=== PATIENT | female | born 1935 | race Caucasian/White ===

== ENCOUNTER 2017-02-22 10:19 | Emergency (ER) | payer MEDICARE, MEDICAID ==
[2017-02-22 10:40] VITALS: BP 109/72
--- NOTE | 2017-02-22 12:17 | ER Document Report ---
ED General - General Mode of Arrival: Ambulatory - with walker Information source: Patient TRAVEL OUTSIDE OF THE [place] IN LAST 30 DAYS: No - HPI Associated symptoms: Other - see HPI <ROSCOE MILNER - Last Filed: 02/22/17 12:11> <DURAN العلي - Last Filed: 04/02/17 06:33> - General Chief Complaint: Weakness Stated Complaint: WEAKNESS Time Seen by Provider: 02/22/17 11:51 Notes: Patient is an 82 year old female who presents to the ED with complaints of worsening arthritic pain, decline in ability to do daily activities without assistance and increased forgetfulness. This has all been declining over the last several months. She also complains of "shaking in her chest" and anxiety. Her PCP is aware of these symptoms and her next appointment with him is in March. (ROSCOE MILNER) - Related Data Allergies/Adverse Reactions: codeine [Codeine] Allergy (Verified 02/22/17 10:38) doxycycline [Doxycycline] Allergy (Verified 02/22/17 10:38) Sulfa (Sulfonamide Antibiotics) Allergy (Verified 02/22/17 10:38) Home Medications: Current Home Medications Esomeprazole Magnesium [Nexium] 40 mg PO DAILY 02/22/17 [History] Hydrochlorothiazide [Hydrochlorothiazide] 25 mg PO DAILY 02/22/17 [History] Olopatadine HCl [Pataday] 1 drop OU DAILY 02/22/17 [History] Risperidone [Risperdal] 0.5 mg PO BID 02/22/17 [History] Rosuvastatin Calcium [Rosuvastatin Calcium] 20 mg PO DAILY 02/22/17 [History] Past Medical History - General Information source: Patient - Social History Smoking Status: Never Smoker Chew tobacco use (# tins/day): No Frequency of alcohol use: None Drug Abuse: None Family History: Reviewed & Not Pertinent - Past Medical History Cardiac Medical History: Reports: Hx Hypercholesterolemia, Hx Hypertension Pulmonary Medical History: Reports: Hx Asthma Endocrine Medical History: Reports: Hx Diabetes Mellitus Type 2 Renal/ Medical History: Denies: Hx Peritoneal Dialysis Musculoskeltal Medical History: Reports Hx Arthritis - KNEES Psychiatric Medical History: Reports: Hx Anxiety - Immunizations Hx Diphtheria, Pertussis, Tetanus Vaccination: Yes <ROSCOE MILNER - Last Filed: 02/22/17 12:11> Review of Systems - Review of Systems Constitutional: See HPI, Weakness EENT: No symptoms reported Cardiovascular: No symptoms reported Respiratory: No symptoms reported Gastrointestinal: No symptoms reported Genitourinary: No symptoms reported Female Genitourinary: No symptoms reported Musculoskeletal: See HPI, Other - worsening arthritic pain Skin: No symptoms reported Hematologic/Lymphatic: No symptoms reported Neurological/Psychological: See HPI, Anxiety, Weakness, Other - forgetful <ROSCOE MILNER - Last Filed: 02/22/17 12:11> Physical Exam - General General appearance: Appears well, Alert, Other - expressionless face In distress: None - HEENT Head: Normocephalic, Atraumatic Eyes: Normal, Tears - right eye Extraocular movements intact: Yes Pupils: PERRL - Respiratory Respiratory status: No respiratory distress Breath sounds: Normal - Cardiovascular Rhythm: Regular Heart sounds: Normal auscultation Murmur: No - Abdominal Inspection: Normal Distension: No distension Tenderness: Nontender - Back Back: Normal - Extremities General upper extremity: Normal inspection, Normal strength General lower extremity: Normal inspection, Normal strength - Neurological Neuro grossly intact: Yes - Psychological Associated symptoms: Normal affect, Normal mood - Skin Skin Temperature: Warm Skin Moisture: Dry Skin Color: Normal <ROSCOE MILNER - Last Filed: 02/22/17 12:11> - Vital signs Vitals: Temp Pulse Resp BP Pulse Ox 98.4 F 89 16 109/72 94 02/22/17 10:38 02/22/17 10:38 02/22/17 10:38 02/22/17 10:38 02/22/17 10:38 Course - Laboratory Result Diagrams: 02/22/17 13:02 02/22/17 13:02 <DURAN العلي - Last Filed: 04/02/17 06:33> - Vital Signs Vital signs: Temp Pulse Resp BP Pulse Ox 98.4 F 89 16 109/72 94 02/22/17 10:38 02/22/17 10:38 02/22/17 10:38 02/22/17 10:38 02/22/17 10:38 - Laboratory Laboratory results interpreted by me: 02/22/17 02/22/17 02/22/17 13:02 13:02 13:02 Plt Count 147 L Potassium 3.1 L Chloride 95 L Carbon Dioxide 35 H BUN 25 H Est GFR ( Amer) 50 L Est GFR (Non-Af Amer) 41 L Magnesium AST 38 H Urine Blood SMALL H 02/22/17 13:02 Plt Count Potassium Chloride Carbon Dioxide BUN Est GFR ( Amer) Est GFR (Non-Af Amer) Magnesium 1.5 L AST Urine Blood Discharge <ROSCOE MILNER - Last Filed: 02/22/17 12:11> <DURAN العلي - Last Filed: 04/02/17 06:33> - Discharge Clinical Impression: Anxiety, Arthritis, Hypokalemia, Declining functional status Condition: Stable Disposition: HOME, SELF-CARE Additional Instructions: There was no sign of any infection on your workup today. You did have a low potassium level. You should increase potassium in your diet, eating things such as bananas. Your serum carbon dioxide levels were increased compared to the lab work I have to review from 2 years ago. I cannot tell if this is a new finding without recent lab work for comparison. You should follow-up with Dr. Trujillo in the office tomorrow for reevaluation of your lab work, and your functional status decline which has been occurring over the last several weeks to months. RETURN TO THE EMERGENCY ROOM IF ANY NEW OR WORSENING SYMPTOMS. Referrals: CHLOE TRUJILLO MD [Primary Care Provider] - Follow up tomorrow Scribe Attestation: 02/22/17 14:35 I personally performed the services described in the documentation, reviewed and edited the documentation which was dictated to the scribe in my presence, and it accurately records my words and actions. (DURAN العلي) Scribe Documentation - Scribe Written by Marcy:: marcy White, 02/22/17, 1212 acting as scribe for :: Georgette <ROSCOE MILNER - Last Filed: 02/22/17 12:11>
[2017-02-22 13:21] LABS: ABSOLUTE LYMPHOCYTES (AUTO) 1.7 10^3/uL (0.5-4.7); ABSOLUTE MONOCYTES (AUTO) 0.3 10^3/uL (0.1-1.4); ABSOLUTE NEUT (AUTO) 4.8 10^3/uL (1.7-8.2); BASOPHILS % (AUTO) 0.4 % (0-2); EOSINOPHILS % (AUTO) 0.5 % (0-6); HEMOGLOBIN 13.4 g/dL (12.0-15.5); HGB HCT DIFFERENCE 2.2; LYMPHOCYTES % (AUTO) 24.3 % (13-45); MEAN CORPUSCULAR HEMOGLOBIN 31.5 pg (27.0-33.4); MEAN CORPUSCULAR HGB CONC 35.3 g/dL (32.0-36.0); MEAN CORPUSCULAR VOLUME 89 fl (80-97); RED BLOOD COUNT 4.26 10^6/uL (3.72-5.28); RED CELL DISTRIBUTION WIDTH 13.5 % (11.5-14.0); SEGMENTED NEUTROPHILS % (AUTO) 69.8 % (42-78); WHITE BLOOD COUNT 6.9 10^3/uL (4.0-10.5)
[2017-02-22 13:27] LABS: APPEARANCE,URINE CLEAR; BILIRUBIN,URINE NEGATIVE (NEGATIVE); GLUCOSE, URINE NEGATIVE (NEGATIVE); KETONES,URINE NEGATIVE (NEGATIVE); LEUKOCYTE ESTERASE,URINE NEGATIVE (NEGATIVE); NITRITE,URINE NEGATIVE (NEGATIVE); PROTEIN,URINE NEGATIVE (NEGATIVE); URINE SPECIFIC GRAVITY 1.005; UROBILINOGEN,URINE NEGATIVE mg/dL (<2.0)
[2017-02-22 13:41] LABS: ALANINE AMINOTRANSFERASE 26 U/L (9-52); ALKALINE PHOSPHATASE 67 U/L (38-126); ANION GAP 14 (5-19); ASPARTATE AMINO TRANSFERASE 38 U/L (14-36); BILIRUBIN,DIRECT 0.4 mg/dL (0.0-0.4); BILIRUBIN,TOTAL 0.9 mg/dL (0.2-1.3); BLOOD UREA NITROGEN 25 mg/dL (7-20); CALCIUM 9.7 mg/dL (8.4-10.2); CARBON DIOXIDE 35 mmol/L (22-30); CHLORIDE 95 mmol/L (98-107); CREATININE RESULT 1.25 mg/dL (0.52-1.25); GLUCOSE 97 mg/dL (75-110); POTASSIUM 3.1 mmol/L (3.6-5.0); SODIUM 143.7 mmol/L (137-145); TOTAL PROTEIN 6.9 g/dL (6.3-8.2)
[2017-02-22] MEDS ORDERED: POTASSIUM CHLORIDE 10 MEQ TABLET.SA PO ONE (14:07)
== END 2017-02-22 15:23 | disposition home or self-care (01) ==
LOC: ER 10:19
DX: F41.9 Anxiety disorder, unspecified (principal); M19.90 Unspecified osteoarthritis, unspecified site; E87.6 Hypokalemia; R53.81 Other malaise; R53.1 Weakness; I10 Essential (primary) hypertension; E11.9 Type 2 diabetes mellitus without complications; E78.00 Pure hypercholesterolemia, unspecified; Z88.6 Allergy status to analgesic agent; Z88.2 Allergy status to sulfonamides
CPT/HCPCS: 99284; 36415; 83735; 84443; 85025; 80053; 81001; A9270

== ENCOUNTER 2017-05-31 11:18 | Inpatient (IN) | payer MEDICARE, MEDICAID ==
[2017-05-31] MEDS ORDERED: NORMAL SALINE 1000 ML 1,000 ML IV PRN (12:11)
--- NOTE | 2017-05-31 12:12 | ER Document Report ---
ED Medical Screen (RME) - General Chief Complaint: Difficulty Swallowing Stated Complaint: MOUTH PAIN Time Seen by Provider: 05/31/17 12:11 Mode of Arrival: Ambulatory Information source: Patient Notes: This is an 82-year-old female who is brought to the emergency room for generalized weakness, drooling, not eating TRAVEL OUTSIDE OF THE [place] IN LAST 30 DAYS: No - Related Data Allergies/Adverse Reactions: codeine [Codeine] Allergy (Verified 05/31/17 11:19) doxycycline [Doxycycline] Allergy (Verified 05/31/17 11:19) Sulfa (Sulfonamide Antibiotics) Allergy (Verified 05/31/17 11:19) Past Medical History - Social History Frequency of alcohol use: None Drug Abuse: None - Past Medical History Cardiac Medical History: Reports: Hx Hypercholesterolemia, Hx Hypertension Pulmonary Medical History: Reports: Hx Asthma Endocrine Medical History: Reports: Hx Diabetes Mellitus Type 2 Renal/ Medical History: Denies: Hx Peritoneal Dialysis Musculoskeltal Medical History: Reports Hx Arthritis - KNEES Psychiatric Medical History: Reports: Hx Anxiety - Immunizations Hx Diphtheria, Pertussis, Tetanus Vaccination: Yes History of Influenza Vaccine for 02/2017 - 07/2017 Season: No Physical Exam - Vital signs Vitals: Temp Pulse Resp BP Pulse Ox 98.0 F 78 14 132/66 H 94 05/31/17 11:25 05/31/17 11:25 05/31/17 11:25 05/31/17 11:25 05/31/17 11:25 Course - Vital Signs Vital signs: Temp Pulse Resp BP Pulse Ox 98.0 F 78 14 132/66 H 94 05/31/17 11:25 05/31/17 11:25 05/31/17 11:25 05/31/17 11:25 05/31/17 11:25
[2017-05-31 12:56] LABS: ABSOLUTE EOSINOPHILS # (AUTO) 0.1 10^3/uL (0.0-0.6); ABSOLUTE LYMPHOCYTES (AUTO) 1.2 10^3/uL (0.5-4.7); ABSOLUTE MONOCYTES (AUTO) 0.3 10^3/uL (0.1-1.4); ABSOLUTE NEUT (AUTO) 3.9 10^3/uL (1.7-8.2); BASOPHILS % (AUTO) 0.7 % (0-2); EOSINOPHILS % (AUTO) 1.4 % (0-6); HEMATOCRIT 34.1 % (36.0-47.0); HEMOGLOBIN 11.7 g/dL (12.0-15.5); LYMPHOCYTES % (AUTO) 21.5 % (13-45); MEAN CORPUSCULAR HEMOGLOBIN 30.5 pg (27.0-33.4); MEAN CORPUSCULAR HGB CONC 34.4 g/dL (32.0-36.0); MEAN CORPUSCULAR VOLUME 89 fl (80-97); MONOCYTES % (AUTO) 5.9 % (3-13); PLATELET COUNT 202 10^3/uL (150-450); RED BLOOD COUNT 3.85 10^6/uL (3.72-5.28); RED CELL DISTRIBUTION WIDTH 14.5 % (11.5-14.0); SEGMENTED NEUTROPHILS % (AUTO) 70.5 % (42-78); TOTAL CELLS COUNTED % (AUTO) 100 %; WHITE BLOOD COUNT 5.6 10^3/uL (4.0-10.5)
[2017-05-31 13:15] LABS: ALANINE AMINOTRANSFERASE 32 U/L (9-52); ALBUMIN 3.6 g/dL (3.5-5.0); ALKALINE PHOSPHATASE 55 U/L (38-126); ANION GAP 10 (5-19); ASPARTATE AMINO TRANSFERASE 57 U/L (14-36); BILIRUBIN,DIRECT 0.4 mg/dL (0.0-0.4); BILIRUBIN,TOTAL 0.8 mg/dL (0.2-1.3); BLOOD UREA NITROGEN 31 mg/dL (7-20); CALCIUM 9.4 mg/dL (8.4-10.2); CARBON DIOXIDE 34 mmol/L (22-30); CHLORIDE 93 mmol/L (98-107); GLUCOSE 119 mg/dL (75-110); SODIUM 136.8 mmol/L (137-145); TOTAL PROTEIN 6.3 g/dL (6.3-8.2)
[2017-05-31 13:18] LABS: POTASSIUM 2.8 mmol/L (3.6-5.0)
--- NOTE | 2017-05-31 13:21 | RADIOLOGY REPORT (SQ) ---
EXAM DESCRIPTION: CHEST PA/LAT COMPLETED DATE/TIME: 05/31/2017 1:12 pm REASON FOR STUDY: weakness COMPARISON: 02/25/2015 EXAM PARAMETERS: NUMBER OF VIEWS: two views TECHNIQUE: Digital Frontal and Lateral radiographic views of the chest acquired. RADIATION DOSE: NA LIMITATIONS: none FINDINGS: LUNGS AND PLEURA: No opacities, masses or pneumothorax. No pleural effusion. MEDIASTINUM AND HILAR STRUCTURES: No masses or contour abnormalities. HEART AND VASCULAR STRUCTURES: Heart normal size. No evidence for failure. BONES: No acute findings. HARDWARE: None in the chest. OTHER: No other significant finding. IMPRESSION: NO ACUTE CARDIOPULMONARY PROCESS. NO SIGNIFICANT CHANGE FROM PRIOR STUDY. TECHNICAL DOCUMENTATION: JOB ID: [id number] [employer]- All Rights Reserved
--- NOTE | 2017-05-31 13:51 | ER Document Report ---
ED General - General Chief Complaint: Difficulty Swallowing Stated Complaint: MOUTH PAIN Time Seen by Provider: 05/31/17 12:11 Mode of Arrival: Ambulatory TRAVEL OUTSIDE OF THE [place] IN LAST 30 DAYS: No - HPI Notes: 82-year-old female who is brought to the emergency room for generalized weakness , drooling, not eating. She has a history of dementia hypokalemia and hypomagnesemia. Initially there were varying opinions on when this started apparently it started mildly about a week ago but is much worse than the last 2 days. Patient states she drools can get some of her saliva down but is unable to eat or really drink anything. She denies any mouth or throat pain. She has difficulty describing why this is happening but states she thinks it might be related to "nerves". She recently was started on a medication, Aricept, which she states she does not like to take. Denies any other focal weakness numbness or tingling. No visual change. She has generalized weakness and is having increasing difficulty performing ADLs. She does have caregivers that come to the house. Primary care physician is Dr. Trujillo. - Related Data Allergies/Adverse Reactions: codeine [Codeine] Allergy (Verified 05/31/17 11:19) doxycycline [Doxycycline] Allergy (Verified 05/31/17 11:19) Sulfa (Sulfonamide Antibiotics) Allergy (Verified 05/31/17 11:19) Past Medical History - General Information source: Patient - Social History Smoking Status: Never Smoker Frequency of alcohol use: None Drug Abuse: None Family History: Reviewed & Not Pertinent Patient has suicidal ideation: No Patient has homicidal ideation: No - Past Medical History Cardiac Medical History: Reports: Hx Hypercholesterolemia, Hx Hypertension Pulmonary Medical History: Reports: Hx Asthma Endocrine Medical History: Reports: Hx Diabetes Mellitus Type 2 Renal/ Medical History: Denies: Hx Peritoneal Dialysis Musculoskeltal Medical History: Reports Hx Arthritis - KNEES Psychiatric Medical History: Reports: Hx Anxiety - Immunizations Hx Diphtheria, Pertussis, Tetanus Vaccination: Yes Review of Systems - Review of Systems -: Yes All other systems reviewed and negative Physical Exam - Vital signs Vitals: Temp Pulse Resp BP Pulse Ox 98.0 F 78 14 132/66 H 94 05/31/17 11:25 05/31/17 11:25 05/31/17 11:25 05/31/17 11:25 05/31/17 11:25 Notes: See nurse's note - Notes Notes: GENERAL: VS as per nursing doc. Well-appearing, well-nourished and in no acute distress. HEAD: Atraumatic, normocephalic. EYES: Pupils equal round and reactive to light, extraocular movements intact, sclera anicteric, no conjunctival injection or discharge. ENT: Nares patent, there is no drooling noted. Maintaining airway and secretions. Dentures are noted in place. Mucosal lesions are absent. Moist mucous membranes. NECK: Normal range of motion, supple, no carotid bruits. No gross swallowing deficit. LUNGS: Breath sounds clear to auscultation bilaterally and equal. No wheezes rales or rhonchi. HEART: Normal S1S2. Regular rate and rhythm without murmurs. Equal peripheral pulses. ABDOMEN: Soft, non-tender. EXTREMITIES: No significant range of motion limitations. No edema. NEUROLOGICAL: GCS 15, Cranial nerves II-XII intact. Normal speech without aphasia. No pronator drift. Generalized weakness but symmetrical. No cerebellar abnormalities no very slow rapid alternating movements. PSYCH: Very flat affect noted. No significant facial expression noted. Minimal smile obtained when directed. SKIN: Warm, Dry, no cyanosis, Cap refill < 2 sec. Course - Re-evaluation Re-evalutation: 05/31/17 15:08 Though the patient is not had a lot of dribbling here, she is done poorly with swallowing. Unclear if this is more psychiatric in nature but cannot rule out neurologic cause otherwise. She is hypokalemic and as she is not taking p.o. well, she will need further IV replacement. Dr. Trujillo will admit for further evaluation and treatment. - Vital Signs Vital signs: Temp Pulse Resp BP Pulse Ox 98.0 F 78 14 132/66 H 94 05/31/17 11:25 05/31/17 11:25 05/31/17 13:15 05/31/17 11:25 05/31/17 11:25 - Laboratory Result Diagrams: 05/31/17 12:25 05/31/17 12:25 Laboratory results interpreted by me: 05/31/17 05/31/17 12:25 12:25 Hgb 11.7 L Hct 34.1 L RDW 14.5 H Sodium 136.8 L Potassium 2.8 L* Chloride 93 L Carbon Dioxide 34 H BUN 31 H Est GFR ( Amer) 52 L Est GFR (Non-Af Amer) 43 L Glucose 119 H AST 57 H - EKG Interpretation by Me EKG shows normal: Sinus rhythm - Heart rate 63, right bundle branch configuration, low amplitude P waves are present. Artifact noted. - Consults Sadaf Time consulted: 15:07 Consulted provider: will see as inpatient Discharge - Discharge Clinical Impression: Dysphasia, Hypokalemia, Weakness Condition: Fair Disposition: ADMITTED OBSERVATION Admitting Provider: Sadaf Unit Admitted: Telemetry Referrals: CHLOE TRUJILLO MD [Primary Care Provider] - Follow up as needed
--- NOTE | 2017-05-31 14:44 | RADIOLOGY REPORT (SQ) ---
EXAM DESCRIPTION: CT HEAD WITHOUT COMPLETED DATE/TIME: 05/31/2017 2:34 pm REASON FOR STUDY: Swallowing dysfunction COMPARISON: 02/25/2015. TECHNIQUE: Axial images acquired through the brain without intravenous contrast. Images reviewed wi th bone, brain and subdural windows. Images stored on PACS. All CT scanners at this facility use dose modulation, iterative reconstruction, and/or weight based d osing when appropriate to reduce radiation dose to as low as reasonably achievable (ALARA). [facility]: Dose Right [facility]: CareDose [facility]: Dose Right [facility]: Teradose 4D [facility]: [employer] RADIATION DOSE: CT Rad equipment meets quality standard of care and radiation dose reduction techniq ues were employed. CTDIvol: 62.3 mGy. DLP: 1163 mGy-cm. mGy. LIMITATIONS: None. FINDINGS: VENTRICLES: Prominent. CEREBRUM: No masses. No hemorrhage. No midline shift. Areas of low density in the white matter mos t likely due to chronic micro-vascular ischemic change. Old infarct in the right occipital lobe. No evidence for acute infarction. CEREBELLUM: No masses. No hemorrhage. No alteration of density. No evidence for acute infarction. EXTRAAXIAL SPACES: Mild age-related involutional change. No fluid collections. No masses. ORBITS AND GLOBE: No intra- or extraconal masses. Normal contour of globe without masses. CALVARIUM: No fracture. PARANASAL SINUSES: Mucous membrane thickening in the left maxillary sinus. No fluid. SOFT TISSUES: No mass or hematoma. OTHER: No other significant finding. IMPRESSION: MILD CHRONIC CHANGES OF ATROPHY AND MICROVASCULAR ISCHEMIA. 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 CHRONIC SINUS DISEASE. NO ACUTE PROCESS. EVIDENCE OF ACUTE STROKE: NO. TECHNICAL DOCUMENTATION: JOB ID: [id number] Quality ID # [id number]: Final reports with documentation of one or more dose reduction techniques (e.g., Au tomated exposure control, adjustment of the mA and/or kV according to patient size, use of iterative reconstruction technique) 2010 [employer]- All Rights Reserved
[2017-05-31] MEDS: POTASSI CL 20 MEQ/50 ML RIDER 20 MEQ/50 ML RTUPB IV SCH ×2 (14:49→17:04)
[2017-05-31 16:59] LABS: APPEARANCE,URINE CLEAR; BILIRUBIN,URINE NEGATIVE (NEGATIVE); COLOR,URINE STRAW; GLUCOSE, URINE NEGATIVE (NEGATIVE); KETONES,URINE NEGATIVE (NEGATIVE); LEUKOCYTE ESTERASE,URINE NEGATIVE (NEGATIVE); NITRITE,URINE NEGATIVE (NEGATIVE); PROTEIN,URINE NEGATIVE (NEGATIVE); URINE SPECIFIC GRAVITY 1.005; UROBILINOGEN,URINE NEGATIVE mg/dL (<2.0)
[2017-05-31] MEDS: HYDROCODONE/ACETAMINOPHEN 5-325 MG TABLET PO PRN (18:36)
--- NOTE | 2017-05-31 19:57 | EKG REPORT ---
SEVERITY:- ABNORMAL ECG - SINUS RHYTHM BLOCKED APCs RIGHT BUNDLE BRANCH BLOCK : Confirmed by: Renea Kaufman 31-May-2017 19:56:47
[2017-06-01] MEDS: HYDROCODONE/ACETAMINOPHEN 5-325 MG TABLET PO PRN ×2 (03:52→16:29)
[2017-06-01 05:09] LABS: ANION GAP 8 (5-19); BLOOD UREA NITROGEN 20 mg/dL (7-20); CALCIUM 9.1 mg/dL (8.4-10.2); CARBON DIOXIDE 35 mmol/L (22-30); CHLORIDE 98 mmol/L (98-107); GLUCOSE 94 mg/dL (75-110); MAGNESIUM 1.6 mg/dL (1.6-2.3); SODIUM 140.9 mmol/L (137-145)
[2017-06-01 05:45] LABS: POTASSIUM 2.5 mmol/L (3.6-5.0)
--- NOTE | 2017-06-01 09:07 | Physician Advisory Note ---
Physician Advisor ProgressNote .: Pursuant to the plan for [facility], I have reviewed the medical record for this patient. Physician Advisor Statement: Please consider documenting, if you agree: 1. "Acute hypokalemia, worsening, suspect due to " 2. "Acute respiratory depression, suspect due to , with respiratory rate often 8-11" 3. "Cerebrovascular atherosclerotic disease" 4. ? "Possible Dysphagia, suspect due to " 5. ? "Major Depression" 6. ? "Adverse effect of Aricept, causing " (can cause nausea, anorexia, weight loss, fatigue, depression, somnolence, FREEMAN, muscle cramps among its common reactions per [employer]) 7. Medical Necessity: for each day, please document what are clinical concerns requiring hospitalization & what is being done about them. Status: appropriately Obs status to start, given uncertain cause(s) of findings , potential for quick recovery, & very low intensity of service so far. Thanks! CK
[2017-06-01] MEDS ORDERED: ALPRAZOLAM 0.5 MG TABLET PO PRN (12:10)
[2017-06-01] MEDS ORDERED: MAGNESIUM SULFATE/D5W 1 GM/100 ML RTUPB IV ONE (12:12)
--- NOTE | 2017-06-01 12:35 | PDOC H&P ---
History of Present Illness Admission Date/PCP: 05/31/17 15:27 CHLOE DESTINYDARIUS Patient complains of: Difficulty with swallowing with drooling History of Present Illness: LOREE HERMOSILLO is a 82 year old female known to my practice who was brought to the ED by family due to onset of difficulty with swallowing at breakfast prior to her presentation. There was associated drooling. Patient denied any definite sore throat, choking feeling or prior intake of any unusual food or drink. Family reported that her drooling has been progressive over 2 days preceding her presentation. She was recently diagnosed with significant hypokalemia for which she was treated with oral potassium supplementation. Family reported generalized weakness but she recently start home physical therapy program. Her morbidities include Hypertension, Hyperlipidemia, Asthma, Diabetes Mellitus Type 2, Osteoarthritis with chronic pain syndrome, Senile dementia, and Anxiety. Past Medical History Cardiac Medical History: Reports: Hyperlipidema, Hypertension Pulmonary Medical History: Reports: Asthma Endocrine Medical History: Reports: Diabetes Mellitus Type 2 Musculoskeltal Medical History: Reports: Arthritis - KNEES Psychiatric Medical History: Reports: Depression Social History Smoking Status: Never Smoker Family History Family History: Reviewed & Not Pertinent Parental Family History Reviewed: Yes Children Family History Reviewed: Yes Sibling(s) Family History Reviewed.: Yes Medication/Allergy Home Medications: Alprazolam [Xanax 0.5 mg Tablet] 0.5 mg PO BID 06/01/17 Alprazolam [Xanax 0.5 mg Tablet] 0.5 mg PO DAILYP PRN 06/01/17 Cyclosporine [Restasis] 1 each OU Q12 06/01/17 Donepezil HCl [Aricept 5 mg Tablet] 5 mg PO QHS 06/01/17 Esomeprazole Magnesium [Nexium] 40 mg PO QAM 06/01/17 Hydrochlorothiazide [Hydrodiuril 12.5 mg Capsule] 12.5 mg PO DAILY 06/01/17 Hydrocodone/Acetaminophen [Hydrocodon-Acetaminophen 5-325] 1 each PO Q6HP PRN Magnesium Oxide [Mag-Ox 400 mg Tablet] 400 mg PO DAILY 06/01/17 Potassium Chloride 10 meq PO DAILY 06/01/17 Risperidone [Risperdal] 0.5 mg PO Q12 06/01/17 Rosuvastatin Calcium [Crestor 20 mg Tablet] 20 mg PO DAILY 06/01/17 Verapamil HCl [Verapamil ER] 240 mg PO DAILY 06/01/17 Allergies/Adverse Reactions: codeine [Codeine] Allergy (Verified 05/31/17 11:19) doxycycline [Doxycycline] Allergy (Verified 05/31/17 11:19) Sulfa (Sulfonamide Antibiotics) Allergy (Verified 05/31/17 11:19) Review of Systems All systems: reviewed and no additional remarkable complaints except as stated Physical Exam Vital Signs: Temp Pulse Resp BP Pulse Ox 98.1 F 78 11 L 137/59 H 98 06/01/17 02:41 05/31/17 11:25 06/01/17 07:00 06/01/17 05:01 06/01/17 07:00 General appearance: PRESENT: no acute distress Head exam: PRESENT: atraumatic, normocephalic Eye exam: PRESENT: conjunctiva pink, EOMI, PERRLA. ABSENT: scleral icterus Mouth exam: PRESENT: moist, neck supple Respiratory exam: PRESENT: clear to auscultation isha, decreased breath sounds - at lung bases Cardiovascular exam: PRESENT: RRR. ABSENT: diastolic murmur, rubs, systolic murmur Vascular exam: PRESENT: normal capillary refill. ABSENT: pallor GI/Abdominal exam: PRESENT: normal bowel sounds, soft. ABSENT: distended, guarding, mass, organolmegaly, rebound, tenderness Rectal exam: PRESENT: deferred Extremities exam: ABSENT: pedal edema Musculoskeletal exam: PRESENT: normal inspection Neurological exam: PRESENT: alert, awake, CN II-XII grossly intact, motor sensory deficit Psychiatric exam: PRESENT: appropriate affect, normal mood. ABSENT: homicidal ideation, suicidal ideation Skin exam: PRESENT: dry, intact, warm. ABSENT: cyanosis, rash Results Laboratory Results: 06/01/17 04:41 05/31/17 06/01/17 16:41 04:41 Sodium 140.9 Potassium 2.5 L* Chloride 98 Carbon Dioxide 35 H Anion Gap 8 BUN 20 Creatinine 1.00 Est GFR ( Amer) > 60 Est GFR (Non-Af Amer) 53 L Glucose 94 Calcium 9.1 Magnesium 1.6 Urine Color STRAW Urine Appearance CLEAR Urine pH 5.0 Ur Specific [place] 1.005 Urine Protein NEGATIVE Urine Glucose (UA) NEGATIVE Urine Ketones NEGATIVE Urine Blood SMALL H Urine Nitrite NEGATIVE Ur Leukocyte Esterase NEGATIVE Urine WBC (Auto) 1 Urine RBC (Auto) 0 Impressions: Chest X-Ray 05/31/17 12:11 IMPRESSION: NO ACUTE CARDIOPULMONARY PROCESS. NO SIGNIFICANT CHANGE FROM PRIOR STUDY. Head CT 05/31/17 13:40 IMPRESSION: MILD CHRONIC CHANGES OF ATROPHY AND MICROVASCULAR ISCHEMIA. OLD INFARCT IN THE RIGHT OCCIPITAL LOBE. CHRONIC SINUS DISEASE. NO ACUTE PROCESS. EVIDENCE OF ACUTE STROKE: NO. Assessment & Plan - Diagnosis (1) Dysphagia Qualifiers: Dysphagia type: unspecified Qualified Code(s): R13.10 - Dysphagia, unspecified Is this a current diagnosis for this admission?: Yes Plan: See admitting attending physician orders. May be related to her old stroke with residual motor deficit. Other contender include her dementia. (2) Hypokalemia Is this a current diagnosis for this admission?: Yes Plan: See admitting attending physician orders. Most likely due to inadequate intake and GI possible losses. (3) HTN (hypertension) Qualifiers: Hypertension type: essential hypertension Qualified Code(s): I10 - Essential (primary) hypertension Is this a current diagnosis for this admission?: Yes Plan: See admitting attending physician orders. (4) HLD (hyperlipidemia) Qualifiers: Hyperlipidemia type: pure hypercholesterolemia Qualified Code(s): E78.00 - Pure hypercholesterolemia, unspecified; E78.0 - Pure hypercholesterolemia Is this a current diagnosis for this admission?: Yes Plan: See admitting attending physician orders. (5) Diabetes type 2, controlled Qualifiers: Diabetes mellitus complication status: without complication Diabetes mellitus snf insulin use: without superintendent terminal use Qualified Code(s): E11.9 - Type 2 diabetes mellitus without complications Is this a current diagnosis for this admission?: Yes Plan: See admitting attending physician orders. (6) Senile dementia of Alzheimer's type Is this a current diagnosis for this admission?: Yes Plan: See admitting attending physician orders. (7) Chronic pain syndrome Is this a current diagnosis for this admission?: Yes Plan: See admitting attending physician orders. (8) Osteoarthritis of multiple joints Qualifiers: Osteoarthritis type: primary Qualified Code(s): M15.0 - Primary generalized (osteo)arthritis Is this a current diagnosis for this admission?: Yes Plan: See admitting attending physician orders. - Time Time Spent: 50 to 70 Minutes Medications reviewed and adjusted accordingly: Yes Anticipated discharge: Home with Homehealth Within: within 48 hours - Plan Summary Plan Summary: See admitting attending physician orders.
[2017-06-01 14:44] LABS: HEMATOCRIT 34.4 % (36.0-47.0); HEMOGLOBIN 11.8 g/dL (12.0-15.5); MEAN CORPUSCULAR HEMOGLOBIN 30.5 pg (27.0-33.4); MEAN CORPUSCULAR HGB CONC 34.3 g/dL (32.0-36.0); MEAN CORPUSCULAR VOLUME 89 fl (80-97); PLATELET COUNT 197 10^3/uL (150-450); RED BLOOD COUNT 3.87 10^6/uL (3.72-5.28); RED CELL DISTRIBUTION WIDTH 14.5 % (11.5-14.0); WHITE BLOOD COUNT 5.4 10^3/uL (4.0-10.5)
[2017-06-01] MEDS: POTASSI CL 20 MEQ/50 ML RIDER 20 MEQ/50 ML RTUPB IV SCH ×2 (16:56→19:17)
[2017-06-01] MEDS: ALPRAZOLAM 0.5 MG TABLET PO SCH (17:05)
[2017-06-01] MEDS ORDERED: (PENDING PHARMACY ID) (Risperidone [Risperdal] 0.5 MG) PO SCH (22:00)
[2017-06-01] MEDS ORDERED: CYCLOSPORINE 0.05% OPH EMULSIO 0.4 ML DROPERETTE ONE (22:35)
[2017-06-01] MEDS: DONEPEZIL HCL 5 MG TABLET PO SCH (22:48)
[2017-06-01] MEDS: RISPERIDONE 1 MG TABLET PO SCH (22:48)
[2017-06-01] MEDS: CYCLOSPORINE 0.05% OPH EMULSIO 0.4 ML DROPERETTE OU SCH (22:48)
[2017-06-01] MEDS: ATORVASTATIN CALCIUM 40 MG TABLET PO SCH (22:48)
[2017-06-01] MEDS ORDERED: POTASSIUM CHLORIDE 20 MEQ/50 ML RTU IV ONE (23:00)
[2017-06-02] MEDS: HYDROCODONE/ACETAMINOPHEN 5-325 MG TABLET PO PRN ×4 (01:17→22:55)
[2017-06-02 07:18] LABS: ABSOLUTE EOSINOPHILS # (AUTO) 0.1 10^3/uL (0.0-0.6); ABSOLUTE LYMPHOCYTES (AUTO) 1.2 10^3/uL (0.5-4.7); ABSOLUTE MONOCYTES (AUTO) 0.4 10^3/uL (0.1-1.4); BASOPHILS % (AUTO) 0.7 % (0-2); EOSINOPHILS % (AUTO) 2.8 % (0-6); HEMATOCRIT 32.7 % (36.0-47.0); HEMOGLOBIN 11.3 g/dL (12.0-15.5); LYMPHOCYTES % (AUTO) 25.8 % (13-45); MEAN CORPUSCULAR HEMOGLOBIN 30.6 pg (27.0-33.4); MEAN CORPUSCULAR HGB CONC 34.5 g/dL (32.0-36.0); MEAN CORPUSCULAR VOLUME 89 fl (80-97); MONOCYTES % (AUTO) 8.3 % (3-13); PLATELET COUNT 197 10^3/uL (150-450); RED BLOOD COUNT 3.68 10^6/uL (3.72-5.28); RED CELL DISTRIBUTION WIDTH 14.8 % (11.5-14.0); SEGMENTED NEUTROPHILS % (AUTO) 62.4 % (42-78); TOTAL CELLS COUNTED % (AUTO) 100 %; WHITE BLOOD COUNT 4.8 10^3/uL (4.0-10.5)
[2017-06-02 07:45] LABS: ALANINE AMINOTRANSFERASE 25 U/L (9-52); ALBUMIN 3.3 g/dL (3.5-5.0); ALKALINE PHOSPHATASE 55 U/L (38-126); ANION GAP 8 (5-19); ASPARTATE AMINO TRANSFERASE 40 U/L (14-36); BILIRUBIN,DIRECT 0.4 mg/dL (0.0-0.4); BILIRUBIN,TOTAL 0.7 mg/dL (0.2-1.3); BLOOD UREA NITROGEN 17 mg/dL (7-20); CALCIUM 9.2 mg/dL (8.4-10.2); CARBON DIOXIDE 35 mmol/L (22-30); CHLORIDE 98 mmol/L (98-107); GLUCOSE 94 mg/dL (75-110); MAGNESIUM 1.8 mg/dL (1.6-2.3); SODIUM 141.2 mmol/L (137-145)
[2017-06-02 07:48] LABS: POTASSIUM 2.9 mmol/L (3.6-5.0)
[2017-06-02] MEDS ORDERED: (PENDING PHARMACY ID) (Rosuvastatin Calcium [Crestor 20 Mg Tablet] 20 MG) PO SCH (10:00)
[2017-06-02] MEDS ORDERED: (PENDING PHARMACY ID) (Potassium Chloride [Potassium Chloride] 10 MEQ) PO SCH (10:00)
[2017-06-02] MEDS ORDERED: POTASSIUM CHLORIDE 20 MEQ/50 ML RTU IV SCH (10:00)
[2017-06-02] MEDS: MAGNESIUM OXIDE 400 MG TABLET PO SCH (11:25)
[2017-06-02] MEDS: ALPRAZOLAM 0.5 MG TABLET PO SCH ×2 (11:33→18:19)
[2017-06-02] MEDS: POTASSIUM CHLORIDE 10 MEQ TABLET.SA PO SCH (11:34)
[2017-06-02] MEDS: VERAPAMIL HCL 240 MG TABLET.SA PO SCH (11:36)
[2017-06-02] MEDS: CYCLOSPORINE 0.05% OPH EMULSIO 0.4 ML DROPERETTE OU SCH ×2 (11:37→22:55)
[2017-06-02] MEDS: ENOXAPARIN SODIUM INJ 40 MG/0.4 ML DISP.SYRIN SUBCUT SCH (11:38)
[2017-06-02] MEDS: POTASSIUM CHLORIDE 20 MEQ/50 ML RTU IV SCH ×3 (11:38→18:19)
[2017-06-02] MEDS: RISPERIDONE 1 MG TABLET PO SCH ×2 (11:38→22:55)
--- NOTE | 2017-06-02 19:41 | PDOC PROGRESS REPORT ---
Subjective Progress Note for:: 06/02/17 Subjective:: Patient reported difficulty with voiding and lower abdominal and vulval region pain. No nausea or vomiting. Tolerating oral feeding. No reported fever but patient claimed chills and requested several blanket usage. No chest pain or difficulty with breathing. Reason For Visit: DYSPHASIA, PERSISTENT HYPOKALEMIA WITH FAILURE OF Physical Exam Vital Signs: Temp Pulse Resp BP Pulse Ox 98.4 F 87 16 132/76 H 96 06/02/17 16:00 06/02/17 16:00 06/02/17 16:00 06/02/17 16:00 06/02/17 16:00 Intake & Output 06/01/17 06/02/17 06/03/17 06:59 06:59 06:59 Intake Total 1062 2400 Output Total 900 Balance 162 2400 General appearance: PRESENT: no acute distress Head exam: PRESENT: atraumatic, normocephalic Eye exam: PRESENT: conjunctiva pink, EOMI, PERRLA. ABSENT: scleral icterus Mouth exam: PRESENT: moist Respiratory exam: PRESENT: clear to auscultation isha, decreased breath sounds - at lung bases Cardiovascular exam: PRESENT: RRR. ABSENT: diastolic murmur, rubs, systolic murmur GI/Abdominal exam: PRESENT: normal bowel sounds, soft, tenderness - suprapubic region. ABSENT: ascites, mass Extremities exam: PRESENT: pedal edema Musculoskeletal exam: PRESENT: deformity - related to arthritis Neurological exam: PRESENT: alert, awake - and appropriate in simple responses. Psychiatric exam: PRESENT: appropriate affect, normal mood. ABSENT: homicidal ideation, suicidal ideation Skin exam: PRESENT: dry, intact, warm. ABSENT: cyanosis, rash Results Laboratory Results: 06/02/17 07:02 06/02/17 07:02 06/02/17 06/02/17 07:02 07:02 WBC 4.8 RBC 3.68 L Hgb 11.3 L Hct 32.7 L MCV 89 MCH 30.6 MCHC 34.5 RDW 14.8 H Plt Count 197 Seg Neutrophils % 62.4 Lymphocytes % 25.8 Monocytes % 8.3 Eosinophils % 2.8 Basophils % 0.7 Absolute Neutrophils 3.0 Absolute Lymphocytes 1.2 Absolute Monocytes 0.4 Absolute Eosinophils 0.1 Absolute Basophils 0.0 Sodium 141.2 Potassium 2.9 L* Chloride 98 Carbon Dioxide 35 H Anion Gap 8 BUN 17 Creatinine 0.90 Est GFR ( Amer) > 60 Est GFR (Non-Af Amer) > 60 Glucose 94 Calcium 9.2 Magnesium 1.8 Total Bilirubin 0.7 AST 40 H ALT 25 Alkaline Phosphatase 55 Total Protein 6.0 L Albumin 3.3 L Impressions: Chest X-Ray 05/31/17 12:11 IMPRESSION: NO ACUTE CARDIOPULMONARY PROCESS. NO SIGNIFICANT CHANGE FROM PRIOR STUDY. Head CT 05/31/17 13:40 IMPRESSION: MILD CHRONIC CHANGES OF ATROPHY AND MICROVASCULAR ISCHEMIA. OLD INFARCT IN THE RIGHT OCCIPITAL LOBE. CHRONIC SINUS DISEASE. NO ACUTE PROCESS. EVIDENCE OF ACUTE STROKE: NO. Assessment & Plan - Diagnosis (1) Dysphagia Qualifiers: Dysphagia type: unspecified Qualified Code(s): R13.10 - Dysphagia, unspecified Is this a current diagnosis for this admission?: Yes Plan: See attending physician orders. (2) Hypokalemia Is this a current diagnosis for this admission?: Yes Plan: Persistent despite administration f potassium supplementation. See attending physician orders. (3) HTN (hypertension) Qualifiers: Hypertension type: essential hypertension Qualified Code(s): I10 - Essential (primary) hypertension Is this a current diagnosis for this admission?: Yes Plan: See attending physician orders. (4) HLD (hyperlipidemia) Qualifiers: Hyperlipidemia type: pure hypercholesterolemia Qualified Code(s): E78.00 - Pure hypercholesterolemia, unspecified; E78.0 - Pure hypercholesterolemia Is this a current diagnosis for this admission?: Yes Plan: See attending physician orders. (5) Diabetes type 2, controlled Qualifiers: Diabetes mellitus complication status: without complication Diabetes mellitus halfway insulin use: without halfway use Qualified Code(s): E11.9 - Type 2 diabetes mellitus without complications Is this a current diagnosis for this admission?: Yes Plan: See attending physician orders. (6) Senile dementia of Alzheimer's type Is this a current diagnosis for this admission?: Yes Plan: See attending physician orders. (7) Chronic pain syndrome Is this a current diagnosis for this admission?: Yes Plan: See attending physician orders. (8) Osteoarthritis of multiple joints Qualifiers: Osteoarthritis type: primary Qualified Code(s): M15.0 - Primary generalized (osteo)arthritis Is this a current diagnosis for this admission?: Yes Plan: See attending physician orders. (9) Dysuria Is this a current diagnosis for this admission?: Yes Plan: See attending physician orders. - Time Time Spent with patient: 25-34 minutes Medications reviewed and adjusted accordingly: Yes Anticipated discharge: Other Within: Other - Plan Summary Plan Summary: See attending physician orders.
[2017-06-02] MEDS ORDERED: CEFTRIAXONE 1 GM/D5W RTU 1 GM/50 ML RTUPB IV SCH (20:00)
[2017-06-02 21:23] LABS: APPEARANCE,URINE CLEAR; BILIRUBIN,URINE NEGATIVE (NEGATIVE); COLOR,URINE YELLOW; GLUCOSE, URINE NEGATIVE (NEGATIVE); KETONES,URINE NEGATIVE (NEGATIVE); LEUKOCYTE ESTERASE,URINE NEGATIVE (NEGATIVE); NITRITE,URINE NEGATIVE (NEGATIVE); PROTEIN,URINE NEGATIVE (NEGATIVE); URINE SPECIFIC GRAVITY 1.009
[2017-06-02] MEDS: CEFTRIAXONE SODIUM 1,000 MG in DEXTROSE 5%-WATER 50 ML IV SCH (22:55)
[2017-06-02] MEDS: ATORVASTATIN CALCIUM 40 MG TABLET PO SCH (22:55)
[2017-06-02] MEDS: DONEPEZIL HCL 5 MG TABLET PO SCH (22:55)
[2017-06-03 04:22] LABS: ABSOLUTE EOSINOPHILS # (AUTO) 0.2 10^3/uL (0.0-0.6); ABSOLUTE LYMPHOCYTES (AUTO) 1.3 10^3/uL (0.5-4.7); ABSOLUTE MONOCYTES (AUTO) 0.4 10^3/uL (0.1-1.4); BASOPHILS % (AUTO) 0.6 % (0-2); EOSINOPHILS % (AUTO) 3.2 % (0-6); HEMATOCRIT 29.9 % (36.0-47.0); HEMOGLOBIN 10.3 g/dL (12.0-15.5); LYMPHOCYTES % (AUTO) 27.1 % (13-45); MEAN CORPUSCULAR HEMOGLOBIN 31.2 pg (27.0-33.4); MEAN CORPUSCULAR HGB CONC 34.5 g/dL (32.0-36.0); MEAN CORPUSCULAR VOLUME 90 fl (80-97); MONOCYTES % (AUTO) 7.8 % (3-13); PLATELET COUNT 171 10^3/uL (150-450); RED BLOOD COUNT 3.32 10^6/uL (3.72-5.28); RED CELL DISTRIBUTION WIDTH 14.7 % (11.5-14.0); SEGMENTED NEUTROPHILS % (AUTO) 61.3 % (42-78); TOTAL CELLS COUNTED % (AUTO) 100 %; WHITE BLOOD COUNT 4.9 10^3/uL (4.0-10.5)
[2017-06-03 04:34] LABS: ANION GAP 6 (5-19); BLOOD UREA NITROGEN 16 mg/dL (7-20); CALCIUM 8.8 mg/dL (8.4-10.2); CARBON DIOXIDE 33 mmol/L (22-30); CHLORIDE 102 mmol/L (98-107); GLUCOSE 85 mg/dL (75-110); POTASSIUM 3.4 mmol/L (3.6-5.0); SODIUM 141.3 mmol/L (137-145)
--- NOTE | 2017-06-03 08:02 | PDOC PROGRESS REPORT ---
Subjective Progress Note for:: 06/03/17 Subjective:: Patient denied chest pain, difficulty with breathing, nausea or vomiting. No reported fever of chills. Burning with urination persist. Reason For Visit: DYSPHASIA, PERSISTENT HYPOKALEMIA WITH FAILURE OF Physical Exam Vital Signs: Temp Pulse Resp BP Pulse Ox 97.8 F 59 L 16 149/70 H 99 06/03/17 03:30 06/03/17 03:30 06/03/17 03:30 06/03/17 03:30 06/03/17 03:30 Intake & Output 06/02/17 06/03/17 06/04/17 06:59 06:59 06:59 Intake Total 1062 3331 Output Total 900 Balance 162 3331 Physical Exam: General appearance: PRESENT: no acute distress Head exam: PRESENT: atraumatic, normocephalic Eye exam: PRESENT: conjunctiva pink, EOMI, PERRLA. ABSENT: scleral icterus Mouth exam: PRESENT: moist Respiratory exam: PRESENT: clear to auscultation isha, decreased breath sounds - at lung bases Cardiovascular exam: PRESENT: RRR. ABSENT: diastolic murmur, rubs, systolic murmur GI/Abdominal exam: PRESENT: normal bowel sounds, soft, tenderness - suprapubic region. ABSENT: ascites, mass Extremities exam: PRESENT: pedal edema Musculoskeletal exam: PRESENT: deformity - related to arthritis Neurological exam: PRESENT: alert, awake - and appropriate in simple responses. Psychiatric exam: PRESENT: appropriate affect, normal mood. ABSENT: homicidal ideation, suicidal ideation Skin exam: PRESENT: dry, intact, warm. ABSENT: cyanosis, rash Results Laboratory Results: 06/03/17 04:02 06/03/17 04:02 06/02/17 06/03/17 06/03/17 18:45 04:02 04:02 WBC 4.9 RBC 3.32 L Hgb 10.3 L Hct 29.9 L MCV 90 MCH 31.2 MCHC 34.5 RDW 14.7 H Plt Count 171 Seg Neutrophils % 61.3 Lymphocytes % 27.1 Monocytes % 7.8 Eosinophils % 3.2 Basophils % 0.6 Absolute Neutrophils 3.0 Absolute Lymphocytes 1.3 Absolute Monocytes 0.4 Absolute Eosinophils 0.2 Absolute Basophils 0.0 Sodium 141.3 Potassium 3.4 L Chloride 102 Carbon Dioxide 33 H Anion Gap 6 BUN 16 Creatinine 0.87 Est GFR ( Amer) > 60 Est GFR (Non-Af Amer) > 60 Glucose 85 Calcium 8.8 Urine Color YELLOW Urine Appearance CLEAR Urine pH 8.0 Ur Specific [place] 1.009 Urine Protein NEGATIVE Urine Glucose (UA) NEGATIVE Urine Ketones NEGATIVE Urine Blood NEGATIVE Urine Nitrite NEGATIVE Ur Leukocyte Esterase NEGATIVE Urine WBC (Auto) 6 Urine RBC (Auto) 1 Impressions: Chest X-Ray 05/31/17 12:11 IMPRESSION: NO ACUTE CARDIOPULMONARY PROCESS. NO SIGNIFICANT CHANGE FROM PRIOR STUDY. Head CT 05/31/17 13:40 IMPRESSION: MILD CHRONIC CHANGES OF ATROPHY AND MICROVASCULAR ISCHEMIA. OLD INFARCT IN THE RIGHT OCCIPITAL LOBE. CHRONIC SINUS DISEASE. NO ACUTE PROCESS. EVIDENCE OF ACUTE STROKE: NO. Assessment & Plan - Diagnosis (1) Dysphagia Qualifiers: Dysphagia type: unspecified Qualified Code(s): R13.10 - Dysphagia, unspecified Is this a current diagnosis for this admission?: Yes (2) Hypokalemia Is this a current diagnosis for this admission?: Yes (3) HTN (hypertension) Qualifiers: Hypertension type: essential hypertension Qualified Code(s): I10 - Essential (primary) hypertension Is this a current diagnosis for this admission?: Yes (4) HLD (hyperlipidemia) Qualifiers: Hyperlipidemia type: pure hypercholesterolemia Qualified Code(s): E78.00 - Pure hypercholesterolemia, unspecified; E78.0 - Pure hypercholesterolemia Is this a current diagnosis for this admission?: Yes (5) Diabetes type 2, controlled Qualifiers: Diabetes mellitus complication status: without complication Diabetes mellitus snf insulin use: without rat exterminator use Qualified Code(s): E11.9 - Type 2 diabetes mellitus without complications Is this a current diagnosis for this admission?: Yes (6) Senile dementia of Alzheimer's type Is this a current diagnosis for this admission?: Yes (7) Chronic pain syndrome Is this a current diagnosis for this admission?: Yes (8) Osteoarthritis of multiple joints Qualifiers: Osteoarthritis type: primary Qualified Code(s): M15.0 - Primary generalized (osteo)arthritis Is this a current diagnosis for this admission?: Yes (9) Dysuria Is this a current diagnosis for this admission?: Yes - Time Time Spent with patient: 25-34 minutes Medications reviewed and adjusted accordingly: Yes Anticipated discharge: Home with Homehealth Within: Other - Inpatient Certification Based on my medical assessment, after consideration of the patient's comorbidities, presenting symptoms, or acuity I expect that the services needed warrant INPATIENT care.: Yes I certify that my determination is in accordance with my understanding of Medicare's requirements for reasonable and necessary INPATIENT services [42 CFR 412.3e].: Yes Medical Necessity: Need Close Monitoring Due to Risk of Patient Decompensation, Need For IV Fluids, Need For Continuous Telemetry Monitoring, Need for IV Antibiotics, Risk of Complication if Not Cared For in Hospital Post Hospital Care: D/C Cerner Analyst Documentation - Plan Summary Plan Summary: She will continue IV Rocephin coverage pending urine culture organism identification and sensitivity in view of gram negative rods growth on urine culture. She will receive potassium supplementation. Maintain on all other current medication management.
[2017-06-03] MEDS: ALPRAZOLAM 0.5 MG TABLET PO SCH ×2 (10:00→18:56)
[2017-06-03] MEDS: POTASSIUM CHLORIDE 10 MEQ TABLET.SA PO SCH (10:00)
[2017-06-03] MEDS: MAGNESIUM OXIDE 400 MG TABLET PO SCH (10:00)
[2017-06-03] MEDS: VERAPAMIL HCL 240 MG TABLET.SA PO SCH (10:03)
[2017-06-03] MEDS: CYCLOSPORINE 0.05% OPH EMULSIO 0.4 ML DROPERETTE OU SCH ×2 (10:03→22:43)
[2017-06-03] MEDS: RISPERIDONE 1 MG TABLET PO SCH ×2 (10:03→22:42)
[2017-06-03] MEDS: ENOXAPARIN SODIUM INJ 40 MG/0.4 ML DISP.SYRIN SUBCUT SCH (10:03)
[2017-06-03] MEDS: POTASSI CL 20 MEQ/50 ML RIDER 20 MEQ/50 ML RTUPB IV SCH ×3 (10:08→16:10)
[2017-06-03] MEDS: HYDROCODONE/ACETAMINOPHEN 5-325 MG TABLET PO PRN ×2 (16:07→22:43)
[2017-06-03] MEDS: ATORVASTATIN CALCIUM 40 MG TABLET PO SCH (22:42)
[2017-06-03] MEDS: DONEPEZIL HCL 5 MG TABLET PO SCH (22:43)
[2017-06-03] MEDS: CEFTRIAXONE SODIUM 1,000 MG in DEXTROSE 5%-WATER 50 ML IV SCH (22:43)
[2017-06-04] MEDS: HYDROCODONE/ACETAMINOPHEN 5-325 MG TABLET PO PRN ×2 (04:20→18:36)
[2017-06-04 07:15] LABS: ABSOLUTE EOSINOPHILS # (AUTO) 0.2 10^3/uL (0.0-0.6); ABSOLUTE LYMPHOCYTES (AUTO) 1.5 10^3/uL (0.5-4.7); ABSOLUTE MONOCYTES (AUTO) 0.5 10^3/uL (0.1-1.4); BASOPHILS % (AUTO) 0.4 % (0-2); EOSINOPHILS % (AUTO) 2.7 % (0-6); HEMATOCRIT 33.7 % (36.0-47.0); HEMOGLOBIN 11.6 g/dL (12.0-15.5); LYMPHOCYTES % (AUTO) 24.1 % (13-45); MEAN CORPUSCULAR HEMOGLOBIN 30.9 pg (27.0-33.4); MEAN CORPUSCULAR HGB CONC 34.3 g/dL (32.0-36.0); MEAN CORPUSCULAR VOLUME 90 fl (80-97); MONOCYTES % (AUTO) 7.7 % (3-13); PLATELET COUNT 183 10^3/uL (150-450); RED BLOOD COUNT 3.75 10^6/uL (3.72-5.28); RED CELL DISTRIBUTION WIDTH 14.5 % (11.5-14.0); SEGMENTED NEUTROPHILS % (AUTO) 65.1 % (42-78); TOTAL CELLS COUNTED % (AUTO) 100 %; WHITE BLOOD COUNT 6.1 10^3/uL (4.0-10.5)
[2017-06-04 07:29] LABS: ANION GAP 10 (5-19); BLOOD UREA NITROGEN 13 mg/dL (7-20); CALCIUM 9.1 mg/dL (8.4-10.2); CARBON DIOXIDE 28 mmol/L (22-30); CHLORIDE 103 mmol/L (98-107); GLUCOSE 102 mg/dL (75-110); POTASSIUM 3.7 mmol/L (3.6-5.0); SODIUM 141.1 mmol/L (137-145)
[2017-06-04] MEDS: RISPERIDONE 1 MG TABLET PO SCH ×2 (09:48→21:31)
[2017-06-04] MEDS: ENOXAPARIN SODIUM INJ 40 MG/0.4 ML DISP.SYRIN SUBCUT SCH (09:48)
[2017-06-04] MEDS: POTASSIUM CHLORIDE 10 MEQ TABLET.SA PO SCH (09:49)
[2017-06-04] MEDS: MAGNESIUM OXIDE 400 MG TABLET PO SCH (09:49)
[2017-06-04] MEDS: VERAPAMIL HCL 240 MG TABLET.SA PO SCH (09:49)
[2017-06-04] MEDS: ALPRAZOLAM 0.5 MG TABLET PO SCH ×2 (09:49→18:36)
[2017-06-04] MEDS: CYCLOSPORINE 0.05% OPH EMULSIO 0.4 ML DROPERETTE OU SCH ×2 (09:49→21:31)
[2017-06-04] MEDS: NORMAL SALINE 1000 ML 1,000 ML IV PRN (09:53)
--- NOTE | 2017-06-04 18:40 | PDOC PROGRESS REPORT ---
Subjective Progress Note for:: 06/04/17 Subjective:: Family at bedside. Tolerating oral feeding. No reported fever or chills. Patient denied chest pain or difficulty with breathing. Reason For Visit: PERSISTENT HYPONATREMIA WITH FAILURE OF OUTPATIENT Physical Exam Vital Signs: Temp Pulse Resp BP Pulse Ox 98.0 F 69 18 131/65 H 98 06/04/17 15:57 06/04/17 15:57 06/04/17 15:57 06/04/17 15:57 06/04/17 15:57 Intake & Output 06/03/17 06/04/17 06/05/17 06:59 06:59 06:59 Intake Total 1758 473 Output Total 650 250 Balance 1108 223 Physical Exam: General appearance: PRESENT: no acute distress Head exam: PRESENT: atraumatic, normocephalic Eye exam: PRESENT: conjunctiva pink, EOMI, PERRLA. ABSENT: scleral icterus Mouth exam: PRESENT: moist Respiratory exam: PRESENT: clear to auscultation isha, decreased breath sounds - at lung bases Cardiovascular exam: PRESENT: RRR. ABSENT: diastolic murmur, rubs, systolic murmur GI/Abdominal exam: PRESENT: normal bowel sounds, soft. ABSENT: ascites, mass, tenderness Extremities exam: PRESENT: pedal edema Musculoskeletal exam: PRESENT: deformity - related to arthritis Neurological exam: PRESENT: alert, awake - and appropriate in simple responses. Psychiatric exam: PRESENT: appropriate affect, normal mood. ABSENT: homicidal ideation, suicidal ideation Skin exam: PRESENT: dry, intact, warm. ABSENT: cyanosis, rash Results Laboratory Results: 06/04/17 07:00 06/04/17 07:00 06/04/17 06/04/17 07:00 07:00 WBC 6.1 RBC 3.75 Hgb 11.6 L Hct 33.7 L MCV 90 MCH 30.9 MCHC 34.3 RDW 14.5 H Plt Count 183 Seg Neutrophils % 65.1 Lymphocytes % 24.1 Monocytes % 7.7 Eosinophils % 2.7 Basophils % 0.4 Absolute Neutrophils 4.0 Absolute Lymphocytes 1.5 Absolute Monocytes 0.5 Absolute Eosinophils 0.2 Absolute Basophils 0.0 Sodium 141.1 Potassium 3.7 Chloride 103 Carbon Dioxide 28 Anion Gap 10 BUN 13 Creatinine 0.83 Est GFR ( Amer) > 60 Est GFR (Non-Af Amer) > 60 Glucose 102 Calcium 9.1 Impressions: Chest X-Ray 05/31/17 12:11 IMPRESSION: NO ACUTE CARDIOPULMONARY PROCESS. NO SIGNIFICANT CHANGE FROM PRIOR STUDY. Head CT 05/31/17 13:40 IMPRESSION: MILD CHRONIC CHANGES OF ATROPHY AND MICROVASCULAR ISCHEMIA. OLD INFARCT IN THE RIGHT OCCIPITAL LOBE. CHRONIC SINUS DISEASE. NO ACUTE PROCESS. EVIDENCE OF ACUTE STROKE: NO. Assessment & Plan - Diagnosis (1) Dysphagia Qualifiers: Dysphagia type: unspecified Qualified Code(s): R13.10 - Dysphagia, unspecified Is this a current diagnosis for this admission?: Yes (2) Hypokalemia Is this a current diagnosis for this admission?: Yes (3) HTN (hypertension) Qualifiers: Hypertension type: essential hypertension Qualified Code(s): I10 - Essential (primary) hypertension Is this a current diagnosis for this admission?: Yes (4) HLD (hyperlipidemia) Qualifiers: Hyperlipidemia type: pure hypercholesterolemia Qualified Code(s): E78.00 - Pure hypercholesterolemia, unspecified; E78.0 - Pure hypercholesterolemia Is this a current diagnosis for this admission?: Yes (5) Diabetes type 2, controlled Qualifiers: Diabetes mellitus complication status: without complication Diabetes mellitus chcf insulin use: without usability engineer use Qualified Code(s): E11.9 - Type 2 diabetes mellitus without complications Is this a current diagnosis for this admission?: Yes (6) Senile dementia of Alzheimer's type Is this a current diagnosis for this admission?: Yes (7) Chronic pain syndrome Is this a current diagnosis for this admission?: Yes (8) Osteoarthritis of multiple joints Qualifiers: Osteoarthritis type: primary Qualified Code(s): M15.0 - Primary generalized (osteo)arthritis Is this a current diagnosis for this admission?: Yes (9) Dysuria Is this a current diagnosis for this admission?: Yes (10) Infection due to gram-negative bacteria Is this a current diagnosis for this admission?: Yes Plan: See attending physician orders. - Time Time Spent with patient: 25-34 minutes Medications reviewed and adjusted accordingly: Yes Anticipated discharge: Home with Homehealth Within: Other - Inpatient Certification Based on my medical assessment, after consideration of the patient's comorbidities, presenting symptoms, or acuity I expect that the services needed warrant INPATIENT care.: Yes I certify that my determination is in accordance with my understanding of Medicare's requirements for reasonable and necessary INPATIENT services [42 CFR 412.3e].: Yes Medical Necessity: Need For IV Fluids, Need For Continuous Telemetry Monitoring , Need for IV Antibiotics, Risk of Complication if Not Cared For in Hospital Post Hospital Care: D/C Multiple Drum Sander Helper Documentation - Plan Summary Plan Summary: Continue all current medication management. Follow up on urine culture for organism identification and sensitivity.
[2017-06-04] MEDS: DONEPEZIL HCL 5 MG TABLET PO SCH (21:31)
[2017-06-04] MEDS: CEFTRIAXONE SODIUM 1,000 MG in DEXTROSE 5%-WATER 50 ML IV SCH (21:31)
[2017-06-04] MEDS: ATORVASTATIN CALCIUM 40 MG TABLET PO SCH (21:31)
[2017-06-05] MEDS: HYDROCODONE/ACETAMINOPHEN 5-325 MG TABLET PO PRN ×2 (03:18→15:20)
[2017-06-05] MEDS: NORMAL SALINE 1000 ML 1,000 ML IV PRN (06:57)
[2017-06-05] MEDS ORDERED: NITROFURANTOIN MONOHYD/M-CRYST 100 MG CAPSULE PO SCH (10:00)
[2017-06-05] MEDS: RISPERIDONE 1 MG TABLET PO SCH (10:15)
[2017-06-05] MEDS: CYCLOSPORINE 0.05% OPH EMULSIO 0.4 ML DROPERETTE OU SCH (10:15)
[2017-06-05] MEDS: VERAPAMIL HCL 240 MG TABLET.SA PO SCH (10:16)
[2017-06-05] MEDS: ALPRAZOLAM 0.5 MG TABLET PO SCH (10:18)
[2017-06-05] MEDS: POTASSIUM CHLORIDE 10 MEQ TABLET.SA PO SCH (10:18)
[2017-06-05] MEDS: ENOXAPARIN SODIUM INJ 40 MG/0.4 ML DISP.SYRIN SUBCUT SCH (10:18)
[2017-06-05] MEDS: MAGNESIUM OXIDE 400 MG TABLET PO SCH (10:19)
--- NOTE | 2017-06-05 15:03 | PDOC DISCHARGE SUMMARY ---
General - Admit/Disc Date/PCP Admission Date/Primary Care Provider: 06/03/17 08:05 CHLOE TRUJILLO Discharge Date: 06/05/17 - Discharge Diagnosis (1) Dysphagia Is this a current diagnosis for this admission?: Yes (2) Hypokalemia Is this a current diagnosis for this admission?: Yes (3) HTN (hypertension) Is this a current diagnosis for this admission?: Yes (4) HLD (hyperlipidemia) Is this a current diagnosis for this admission?: Yes (5) Diabetes type 2, controlled Is this a current diagnosis for this admission?: Yes (6) Senile dementia of Alzheimer's type Is this a current diagnosis for this admission?: Yes (7) Chronic pain syndrome Is this a current diagnosis for this admission?: Yes (8) Osteoarthritis of multiple joints Is this a current diagnosis for this admission?: Yes (9) UTI due to extended-spectrum beta lactamase (ESBL) producing Escherichia coli Is this a current diagnosis for this admission?: Yes Summary: Maintain on Macrobid 100 mg po bid x 7 days. - Additional Information Resuscitation Status: Full Code Prescriptions: Nitrofurantoin Monohyd/M-Cryst [Macrobid 100 mg Capsule] 100 mg PO BID 7 Days # 14 capsule Home Medications: Alprazolam [Xanax 0.5 mg Tablet] 0.5 mg PO BID 06/01/17 Alprazolam [Xanax 0.5 mg Tablet] 0.5 mg PO DAILYP PRN 06/01/17 Cyclosporine [Restasis] 1 each OU Q12 06/01/17 Donepezil HCl [Aricept 5 mg Tablet] 5 mg PO QHS 06/01/17 Esomeprazole Magnesium [Nexium] 40 mg PO QAM 06/01/17 Hydrochlorothiazide [Hydrodiuril 12.5 mg Capsule] 12.5 mg PO DAILY 06/01/17 Hydrocodone/Acetaminophen [Hydrocodone-Acetamin 5-325 mg] 1 each PO Q6HP PRN Magnesium Oxide [Mag-Ox 400 mg Tablet] 400 mg PO DAILY 06/01/17 Potassium Chloride 10 meq PO DAILY 06/01/17 Risperidone [Risperdal] 0.5 mg PO Q12 06/01/17 Rosuvastatin Calcium [Crestor 20 mg Tablet] 20 mg PO QHS 06/01/17 Verapamil HCl [Verapamil ER] 240 mg PO DAILY 06/01/17 Nitrofurantoin Monohyd/M-Cryst [Macrobid 100 mg Capsule] 100 mg PO BID 7 Days # 14 capsule 06/05/17 History of Present Illness Patient complains of: Difficulty with swallowing , Facial drooling History of Present Illness: LOREE HERMOSILLO is a 82 year old female known to my practice who was brought to the ED by family due to onset of difficulty with swallowing at breakfast prior to her presentation. There was associated drooling. Patient denied any definite sore throat, choking feeling or prior intake of any unusual food or drink. Family reported that her drooling has been progressive over 2 days preceding her presentation. She was recently diagnosed with significant hypokalemia for which she was treated with oral potassium supplementation. Family reported generalized weakness but she recently start home physical therapy program. Her morbidities include Hypertension, Hyperlipidemia, Asthma, Diabetes Mellitus Type 2, Osteoarthritis with chronic pain syndrome, Senile dementia, and Anxiety. Hospital Course Hospital Course: Patient presenting symptoms resolved quickly after evaluation n the ED. She was able to tolerate oral feeding since admission to the hospital with feeding assistance. No recurrence of drooling. Her persistent hypokalemia did resolved after adequate replacement therapy. Patient expressed pain with urination and her urine culture eventually grew ESBL E. Coli. She has been on Macrobid based on her culture sensitivity report. She will be discharge home on Macrobid 100 mg po bid x 7 days. she will follow up in the office as instructed upon discharge. Physical Exam Vital Signs: Temp Pulse Resp BP Pulse Ox 98.3 F 59 L 18 170/71 H 96 06/05/17 12:01 06/05/17 14:00 06/05/17 12:01 06/05/17 12:01 06/05/17 12:01 Intake & Output 06/04/17 06/05/17 06/06/17 06:59 06:59 06:59 Intake Total 1758 1658 Output Total 650 900 Balance 1108 758 Physical Exam: General appearance: PRESENT: no acute distress Head exam: PRESENT: atraumatic, normocephalic Eye exam: PRESENT: conjunctiva pink, EOMI, PERRLA. ABSENT: scleral icterus Mouth exam: PRESENT: moist Respiratory exam: PRESENT: clear to auscultation isha, decreased breath sounds - at lung bases Cardiovascular exam: PRESENT: RRR. ABSENT: diastolic murmur, rubs, systolic murmur GI/Abdominal exam: PRESENT: normal bowel sounds, soft. ABSENT: ascites, mass, tenderness Extremities exam: PRESENT: pedal edema Musculoskeletal exam: PRESENT: deformity - related to arthritis Neurological exam: PRESENT: alert, awake - and appropriate in simple responses. Psychiatric exam: PRESENT: appropriate affect, normal mood. ABSENT: homicidal ideation, suicidal ideation Skin exam: PRESENT: dry, intact, warm. ABSENT: cyanosis, rash Results Laboratory Results: 06/04/17 07:00 06/04/17 07:00 Impressions: Chest X-Ray 05/31/17 12:11 IMPRESSION: NO ACUTE CARDIOPULMONARY PROCESS. NO SIGNIFICANT CHANGE FROM PRIOR STUDY. Head CT 05/31/17 13:40 IMPRESSION: MILD CHRONIC CHANGES OF ATROPHY AND MICROVASCULAR ISCHEMIA. OLD INFARCT IN THE RIGHT OCCIPITAL LOBE. CHRONIC SINUS DISEASE. NO ACUTE PROCESS. EVIDENCE OF ACUTE STROKE: NO. Qualifiers PATEINT BEING DISCHARGED WITH ANY OF THE FOLLOWING DIAGNOSIS?: No Plan Discharge Plan: D/C home today with prescription for Macrobid 100 mg po bid x 7 days.. 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
[2017-06-05 15:14] VITALS: BP 158/88
== END 2017-06-05 15:50 | disposition home health service (06) | DRG 392 ==
LOC: ER 11:18 → EH 15:27 → 5 06-01 21:21 → OBSVTOIN 06-03 08:05
PROVIDERS: ADMIT Internal Medicine Geriatric Medicine; ATTEND Internal Medicine Geriatric Medicine
DX: R13.10 Dysphagia, unspecified (principal); N39.0 Urinary tract infection, site not specified; Z16.12 Extended spectrum beta lactamase (ESBL) resistance; B96.20 Unspecified Escherichia coli [E. coli] as the cause of diseases classified elsewhere; D64.9 Anemia, unspecified; E87.6 Hypokalemia; I10 Essential (primary) hypertension; E78.5 Hyperlipidemia, unspecified; E11.9 Type 2 diabetes mellitus without complications; F41.9 Anxiety disorder, unspecified; J45.909 Unspecified asthma, uncomplicated; G30.1 Alzheimer's disease with late onset; F02.80 Dementia in other diseases classified elsewhere, unspecified severity, without behavioral disturbance, psychotic disturbance, mood disturbance, and anxiety; G89.4 Chronic pain syndrome; M19.90 Unspecified osteoarthritis, unspecified site; Z79.899 Other long term (current) drug therapy; Z88.1 Allergy status to other antibiotic agents; Z88.2 Allergy status to sulfonamides; Z88.8 Allergy status to other drugs, medicaments and biological substances
CPT/HCPCS: 36415; 70450; 71046; 80048; 80053; 81001; 82565; 83735; 85025; 85027; 87086; 87088; 87186; 93005; 93010; 96365; 96366; 99285; G8978-GP; G8979-GP; J0696; J1650; J3475; J3480; J3490; J7030; J8499

== ENCOUNTER 2017-06-21 14:32 | Emergency (ER) | payer MEDICARE, MEDICAID ==
--- NOTE | 2017-06-21 15:06 | ER Document Report ---
ED Neuro Symptoms/Deficit <CELESTE PINEDO - Last Filed: 06/21/17 23:09> - General Information source: Relative TRAVEL OUTSIDE OF THE [place] IN LAST 30 DAYS: No <AZ FERRIS - Last Filed: 06/21/17 23:15> <BUDDY SHEPPARD - Last Filed: 06/21/17 23:41> - General Chief Complaint: Altered Mental Status Stated Complaint: ALTERED MENTAL STATUS Time Seen by Provider: 06/21/17 14:48 Notes: Ms. Uriostegui is an 82 y.o female with a PMHx of of anxiety, dementia and stroke. Daughter at bedside states that she was here this past week for potassium and UTI. She reports that patient stated she was not feeling well and then stopped talking with family for about 30-45, minutes. Daughter states that pt's dementia medication was changed from day time to night time. Patient reports a FREEMAN but denies any other pain. Daughter denies any vomiting, diarrhea, fever, CP or facial droop. Daughter denies any history of DM. Patient does not answer any other questions concerning her symptoms. (AZ FERRIS) - Related Data Allergies/Adverse Reactions: codeine [Codeine] Allergy (Verified 05/31/17 11:19) doxycycline [Doxycycline] Allergy (Verified 05/31/17 11:19) Sulfa (Sulfonamide Antibiotics) Allergy (Verified 05/31/17 11:19) Past Medical History - General Information source: Relative - Social History Smoking Status: Never Smoker Cigarette use (# per day): No Chew tobacco use (# tins/day): No Smoking Education Provided: No Frequency of alcohol use: None Drug Abuse: None Lives with: Family Family History: Reviewed & Not Pertinent - Past Medical History Cardiac Medical History: Reports: Hx Hypercholesterolemia, Hx Hypertension Denies: Hx Congestive Heart Failure, Hx Heart Attack Pulmonary Medical History: Reports: Hx Asthma Endocrine Medical History: Reports: Hx Diabetes Mellitus Type 2 Renal/ Medical History: Denies: Hx Peritoneal Dialysis Musculoskeltal Medical History: Reports Hx Arthritis Psychiatric Medical History: Reports: Hx Anxiety, Hx Depression - Immunizations Hx Diphtheria, Pertussis, Tetanus Vaccination: Yes <AZ FERRIS - Last Filed: 06/21/17 23:15> Review of Systems - Review of Systems -: Yes ROS unobtainable due to patient's medical condition - Patient does not answer many questions concerning symptoms Constitutional: No symptoms reported EENT: No symptoms reported Cardiovascular: No symptoms reported. denies: Chest pain Respiratory: No symptoms reported Gastrointestinal: No symptoms reported. denies: Diarrhea, Vomiting Genitourinary: No symptoms reported Female Genitourinary: No symptoms reported Musculoskeletal: No symptoms reported Skin: No symptoms reported Hematologic/Lymphatic: No symptoms reported Neurological/Psychological: Confusion - AMS, Headaches <AZ FERRIS - Last Filed: 06/21/17 23:15> Physical Exam <CELESTE PINEDO - Last Filed: 06/21/17 23:09> - Neurological Neuro grossly intact: Yes Orientation: Disoriented to time - Does not know year, Disoriented to events - thinks President Mahi is still in office. Russell Coma Scale Eye Opening: To Voice Frank Coma Scale Verbal: Confused Frank Coma Scale Motor: Obeys Commands Russell Coma Scale Total: 13 Speech: Normal <AZ FERRIS - Last Filed: 06/21/17 23:15> <BUDDY SHEPPARD - Last Filed: 06/21/17 23:41> - Vital signs Vitals: Resp Pulse Ox 13 96 06/21/17 15:12 06/21/17 15:12 - Notes Notes: GENERAL: Lying in bed, awakes to voice. No spontaneous speech. HEAD: Normocephalic, atraumatic. EYES: Pupils equal, round, and reactive to light. Extraocular movements intact. ENT: Oral mucosa moist, tongue midline. NECK: Full range of motion. Supple. Trachea midline. LUNGS: Clear to auscultation bilaterally, no wheezes, rales, or rhonchi. No respiratory distress. HEART: Regular rate and rhythm. No murmurs, gallops, or rubs. ABDOMEN: Soft, non-tender. Non-distended. Bowel sounds present in all 4 quadrants. EXTREMITIES: Moves all 4 extremities spontaneously. No edema, radial and dorsalis pedis pulses 2/4 bilaterally. No cyanosis. NEUROLOGICAL: Awakes to voice. No spontaneous speech. Oriented to place and person but not time. Follows commands to squeeze hand. PSYCH: Flat affect. SKIN: Warm, dry, normal turgor. No rashes or lesions noted. (AZ FERRIS) Course - Laboratory Result Diagrams: 06/21/17 15:26 06/21/17 15:26 <CELESTE PINEDO - Last Filed: 06/21/17 23:09> - Laboratory Result Diagrams: 06/21/17 15:26 06/21/17 15:26 <AZ FERRIS - Last Filed: 06/21/17 23:15> - Laboratory Result Diagrams: 06/21/17 15:26 06/21/17 15:26 <BUDDY SHEPPARD - Last Filed: 06/21/17 23:41> - Re-evaluation Re-evalutation: 06/21/17 16:54 CBC shows mild anemia with hemoglobin 11.4, coags grossly unremarkable, CMP grossly unremarkable, only mildly elevated BUN, cardiac enzymes negative, urinalysis does not show any signs of infection. CT scan of the head shows chronic microvascular ischemia, no acute process, chest x-ray shows no acute process. 06/21/17 16:58 EKG does show some irregularity, appears to be atrial fibrillation, this is not documented previously in the record however she is rate controlled, already taking verapamil, is a fall risk so would not qualify for anticoagulation even with a daily baby aspirin. This is likely not contributing to her altered mental status which has resolved. Her altered mental status is really more consistent with dementia. Patient is to follow-up with Dr. Trujillo as an outpatient. (BUDDY SHEPPARD) - Vital Signs Vital signs: Temp Pulse Resp BP Pulse Ox 52 L 13 134/60 H 95 06/21/17 15:14 06/21/17 17:01 06/21/17 17:00 06/21/17 17:01 - Laboratory Laboratory results interpreted by me: 06/21/17 06/21/17 06/21/17 15:26 15:26 15:51 RBC 3.66 L Hgb 11.4 L Hct 33.5 L RDW 14.8 H Carbon Dioxide 33 H BUN 30 H Est GFR ( Amer) 53 L Est GFR (Non-Af Amer) 44 L Total Protein 5.6 L Albumin 3.3 L Urine Urobilinogen 4.0 H - EKG Interpretation by Me Additional EKG results interpreted by me: 06/21/17 16:58 EKG shows atrial fibrillation at a rate of 59, disagree with computer interpretation that there is a run of PVCs, i see 1 PVC. Normal axis, there is a right bundle branch block, very poor baseline no gross ST segment elevations per my interpretation. (BUDDY SHEPPARD) Discharge <CELESTE PINEDO - Last Filed: 06/21/17 23:09> <AZ FERRIS - Last Filed: 06/21/17 23:15> <BUDDY SHEPPARD - Last Filed: 06/21/17 23:41> - Discharge Clinical Impression: Senile dementia of Alzheimer's type Altered mental status Qualifiers: Altered mental status type: disorientation Qualified Code(s): R41.0 - Disorientation, unspecified HTN (hypertension) Qualifiers: Hypertension type: essential hypertension Qualified Code(s): I10 - Essential ( primary) hypertension Condition: Stable Disposition: HOME, SELF-CARE Additional Instructions: Today there is no evidence of infection or metabolic abnormality such as abnormal potassium. She does have a somewhat irregular heartbeat. This is not likely contributing to her confusion. Her confusion is consistent with dementia. It is very important that you follow-up with Dr. Trujillo as an outpatient to plan for her care as her dementia worsens. Please return if she loses consciousness, develops fevers or develops any new or concerning symptoms. Referrals: CHLOE TRUJILLO MD [Primary Care Provider] - Follow up as needed Scribe Attestation: 06/21/17 23:41 I personally performed the services described in the documentation, reviewed and edited the documentation which was dictated to the scribe in my presence, and it accurately records my words and actions. (BUDDY SHEPPARD) Scribe Documentation - Scribe Written by Otto:: Otto Schwartz, [id number], 06/21/2017 acting as scribe for :: Oscar <CELESTE PINEDO - Last Filed: 06/21/17 23:09>
--- NOTE | 2017-06-21 15:11 | RADIOLOGY REPORT (SQ) ---
EXAM DESCRIPTION: CT HEAD WITHOUT COMPLETED DATE/TIME: 06/21/2017 2:56 pm REASON FOR STUDY: bed 1 stroke alert COMPARISON: 05/31/2017 TECHNIQUE: Axial images acquired through the brain without intravenous contrast. Images reviewed wi th bone, brain and subdural windows. Images stored on PACS. All CT scanners at this facility use dose modulation, iterative reconstruction, and/or weight based d osing when appropriate to reduce radiation dose to as low as reasonably achievable (ALARA). [facility]: Dose Right [facility]: CareDose [facility]: Dose Right [facility]: Teradose 4D [facility]: [employer] RADIATION DOSE: CT Rad equipment meets quality standard of care and radiation dose reduction techniq ues were employed. CTDIvol: 64.6 mGy. DLP: 1034 mGy-cm.mGy. LIMITATIONS: None. FINDINGS: VENTRICLES: Prominent. CEREBRUM: No masses. No hemorrhage. No midline shift. Areas of low density in the white matter mos t likely due to chronic micro-vascular ischemic change. Stable chronic infarction right occipital lo be. No evidence for acute infarction. CEREBELLUM: No masses. No hemorrhage. No alteration of density. No evidence for acute infarction. EXTRAAXIAL SPACES: Age-related involutional change. No fluid collections. No masses. ORBITS AND GLOBE: No intra- or extraconal masses. Normal contour of globe without masses. CALVARIUM: No fracture. PARANASAL SINUSES: No fluid or mucosal thickening. SOFT TISSUES: No mass or hematoma. OTHER: No other significant finding. IMPRESSION: NO CT EVIDENCE OF ACUTE ISCHEMIA, HEMORRHAGE, OR MASS LESION. NO SIGNIFICANT CHANGE FRO M THE PRIOR STUDY. EVIDENCE OF ACUTE STROKE: NO. TECHNICAL DOCUMENTATION: JOB ID: [id number] Quality ID # [id number]: Final reports with documentation of one or more dose reduction techniques (e.g., Au tomated exposure control, adjustment of the mA and/or kV according to patient size, use of iterative reconstruction technique) 2010 [employer]- All Rights Reserved
--- NOTE | 2017-06-21 15:20 | RADIOLOGY REPORT (SQ) ---
EXAM DESCRIPTION: CHEST SINGLE VIEW COMPLETED DATE/TIME: 06/21/2017 3:06 pm REASON FOR STUDY: bed 1 stroke alert COMPARISON: 05/31/2017 EXAM PARAMETERS: NUMBER OF VIEWS: One view. TECHNIQUE: Single frontal radiographic view of the chest acquired. RADIATION DOSE: NA LIMITATIONS: None. FINDINGS: LUNGS AND PLEURA: No opacities, masses or pneumothorax. No pleural effusion. MEDIASTINUM AND HILAR STRUCTURES: No masses. Contour normal. HEART AND VASCULAR STRUCTURES: Heart normal in size. Normal vasculature. BONES: No acute findings. HARDWARE: None in the chest. OTHER: No other significant finding. IMPRESSION: NO ACUTE RADIOGRAPHIC FINDING IN THE CHEST. TECHNICAL DOCUMENTATION: JOB ID: [id number] [employer]- All Rights Reserved
[2017-06-21 15:34] LABS: INTERNATIONAL RATION (INR) 1.04; PARTIAL THROMBOPLASTIN TIME 29.2 SEC (23.5-35.8); PROTHROMBIN TIME 14.3 SEC (11.4-15.4)
[2017-06-21 15:37] LABS: ABSOLUTE EOSINOPHILS # (AUTO) 0.1 10^3/uL (0.0-0.6); ABSOLUTE LYMPHOCYTES (AUTO) 1.7 10^3/uL (0.5-4.7); ABSOLUTE MONOCYTES (AUTO) 0.3 10^3/uL (0.1-1.4); ABSOLUTE NEUT (AUTO) 2.6 10^3/uL (1.7-8.2); BASOPHILS % (AUTO) 0.8 % (0-2); HEMATOCRIT 33.5 % (36.0-47.0); HEMOGLOBIN 11.4 g/dL (12.0-15.5); LYMPHOCYTES % (AUTO) 35.9 % (13-45); MEAN CORPUSCULAR HEMOGLOBIN 31.1 pg (27.0-33.4); MEAN CORPUSCULAR VOLUME 92 fl (80-97); MONOCYTES % (AUTO) 6.9 % (3-13); PLATELET COUNT 174 10^3/uL (150-450); RED BLOOD COUNT 3.66 10^6/uL (3.72-5.28); RED CELL DISTRIBUTION WIDTH 14.8 % (11.5-14.0); SEGMENTED NEUTROPHILS % (AUTO) 53.4 % (42-78); TOTAL CELLS COUNTED % (AUTO) 100 %; WHITE BLOOD COUNT 4.8 10^3/uL (4.0-10.5)
[2017-06-21 15:53] LABS: ALANINE AMINOTRANSFERASE 19 U/L (9-52); ALBUMIN 3.3 g/dL (3.5-5.0); ALKALINE PHOSPHATASE 53 U/L (38-126); ANION GAP 8 (5-19); ASPARTATE AMINO TRANSFERASE 28 U/L (14-36); BILIRUBIN,DIRECT 0.1 mg/dL (0.0-0.4); BILIRUBIN,TOTAL 0.5 mg/dL (0.2-1.3); BLOOD UREA NITROGEN 30 mg/dL (7-20); CALCIUM 9.1 mg/dL (8.4-10.2); CARBON DIOXIDE 33 mmol/L (22-30); CHLORIDE 102 mmol/L (98-107); CREATINE KINASE 126 U/L (30-135); GLUCOSE 93 mg/dL (75-110); POTASSIUM 3.6 mmol/L (3.6-5.0); SODIUM 142.5 mmol/L (137-145); TOTAL PROTEIN 5.6 g/dL (6.3-8.2)
[2017-06-21 16:03] LABS: CREATINE KINASE MB 1.92 ng/mL (<4.55); TROPONIN I 0.015 ng/mL
[2017-06-21 16:13] LABS: APPEARANCE,URINE SLIGHTLY-CLOUDY; BILIRUBIN,URINE NEGATIVE (NEGATIVE); COLOR,URINE YELLOW; GLUCOSE, URINE NEGATIVE (NEGATIVE); KETONES,URINE NEGATIVE (NEGATIVE); LEUKOCYTE ESTERASE,URINE NEGATIVE (NEGATIVE); NITRITE,URINE NEGATIVE (NEGATIVE); PROTEIN,URINE NEGATIVE (NEGATIVE); URINE SPECIFIC GRAVITY 1.026
[2017-06-21 17:44] VITALS: BP 134/60
--- NOTE | 2017-06-21 20:51 | EKG REPORT ---
SEVERITY:- ABNORMAL ECG - ATRIAL FIBRILLATION RUN OF VENTRICULAR PREMATURE COMPLEXES VS ARTIFACT RIGHT BUNDLE BRANCH BLOCK : Confirmed by: Renea Kaufman 21-Jun-2017 20:51:04
== END 2017-06-21 17:54 | disposition home or self-care (01) ==
LOC: ER 14:32
DX: G30.1 Alzheimer's disease with late onset (principal); F02.80 Dementia in other diseases classified elsewhere, unspecified severity, without behavioral disturbance, psychotic disturbance, mood disturbance, and anxiety; Z79.899 Other long term (current) drug therapy; I10 Essential (primary) hypertension; D64.9 Anemia, unspecified; I48.91 Unspecified atrial fibrillation; I45.10 Unspecified right bundle-branch block; R51 Headache; J45.909 Unspecified asthma, uncomplicated; Z86.73 Personal history of transient ischemic attack (TIA), and cerebral infarction without residual deficits; Z87.440 Personal history of urinary (tract) infections; Z88.5 Allergy status to narcotic agent; Z88.1 Allergy status to other antibiotic agents; Z88.2 Allergy status to sulfonamides
CPT/HCPCS: 36415; 70450; 71045; 80053; 81001; 82550; 82553; 84484; 85025; 85610; 85730; 87086; 93005; 93010; 99285

== ENCOUNTER 2017-07-01 18:12 | Emergency (ER) | payer MEDICARE, MEDICAID ==
[2017-07-01 19:43] LABS: ABSOLUTE EOSINOPHILS # (AUTO) 0.1 10^3/uL (0.0-0.6); ABSOLUTE LYMPHOCYTES (AUTO) 1.5 10^3/uL (0.5-4.7); ABSOLUTE MONOCYTES (AUTO) 0.3 10^3/uL (0.1-1.4); ABSOLUTE NEUT (AUTO) 2.7 10^3/uL (1.7-8.2); BASOPHILS % (AUTO) 0.9 % (0-2); EOSINOPHILS % (AUTO) 2.9 % (0-6); HEMATOCRIT 34.9 % (36.0-47.0); HEMOGLOBIN 12.1 g/dL (12.0-15.5); LYMPHOCYTES % (AUTO) 32.3 % (13-45); MEAN CORPUSCULAR HEMOGLOBIN 31.2 pg (27.0-33.4); MEAN CORPUSCULAR HGB CONC 34.7 g/dL (32.0-36.0); MEAN CORPUSCULAR VOLUME 90 fl (80-97); MONOCYTES % (AUTO) 6.7 % (3-13); PLATELET COUNT 174 10^3/uL (150-450); RED BLOOD COUNT 3.87 10^6/uL (3.72-5.28); RED CELL DISTRIBUTION WIDTH 14.4 % (11.5-14.0); SEGMENTED NEUTROPHILS % (AUTO) 57.2 % (42-78); TOTAL CELLS COUNTED % (AUTO) 100 %; WHITE BLOOD COUNT 4.7 10^3/uL (4.0-10.5)
[2017-07-01 20:00] LABS: ANION GAP 9 (5-19); BLOOD UREA NITROGEN 29 mg/dL (7-20); CALCIUM 9.2 mg/dL (8.4-10.2); CARBON DIOXIDE 31 mmol/L (22-30); CHLORIDE 100 mmol/L (98-107); GLUCOSE 108 mg/dL (75-110); POTASSIUM 3.7 mmol/L (3.6-5.0); SODIUM 139.7 mmol/L (137-145)
[2017-07-01 20:13] LABS: NT PRO BNP 390 pg/mL (<450)
[2017-07-01 20:14] LABS: TROPONIN I < 0.012 ng/mL
--- NOTE | 2017-07-01 21:45 | ER Document Report ---
ED General - General Mode of Arrival: Ambulatory Information source: Patient TRAVEL OUTSIDE OF THE [place] IN LAST 30 DAYS: No <YOLY ALLEN - Last Filed: 07/01/17 23:16> <LUIS QUICK - Last Filed: 07/02/17 03:48> - General Chief Complaint: Leg Swelling Stated Complaint: FEET SWELLING Time Seen by Provider: 07/01/17 18:47 Notes: Patient is an 82-year-old female with a history of dementia presents to the emergency department accompanied by daughter and son-in-law complaining of bilateral lower extremity swelling. Family states the patient normally takes fluid pills. Family members are poor historians. Patients PCP is Dr. Trujillo. (YOLY ALLEN) - Related Data Allergies/Adverse Reactions: codeine [Codeine] Allergy (Verified 07/01/17 18:14) doxycycline [Doxycycline] Allergy (Verified 07/01/17 18:14) Sulfa (Sulfonamide Antibiotics) Allergy (Verified 07/01/17 18:14) Past Medical History - General Information source: Patient - Social History Smoking Status: Former Smoker Chew tobacco use (# tins/day): No Frequency of alcohol use: None Drug Abuse: None Family History: Reviewed & Not Pertinent Patient has suicidal ideation: No Patient has homicidal ideation: No - Past Medical History Cardiac Medical History: Reports: Hx Hypercholesterolemia, Hx Hypertension Pulmonary Medical History: Reports: Hx Asthma Endocrine Medical History: Reports: Hx Diabetes Mellitus Type 2 Musculoskeltal Medical History: Reports Hx Arthritis Psychiatric Medical History: Reports: Hx Anxiety, Hx Depression - Immunizations Hx Diphtheria, Pertussis, Tetanus Vaccination: Yes <YOLY ALLEN - Last Filed: 07/01/17 23:16> Review of Systems - Review of Systems Constitutional: No symptoms reported EENT: No symptoms reported Cardiovascular: No symptoms reported Respiratory: No symptoms reported Gastrointestinal: No symptoms reported Genitourinary: No symptoms reported Female Genitourinary: No symptoms reported Musculoskeletal: See HPI Skin: No symptoms reported Hematologic/Lymphatic: No symptoms reported Neurological/Psychological: No symptoms reported -: Yes All other systems reviewed and negative <YOLY ALLEN - Last Filed: 07/01/17 23:16> Physical Exam <YOLY ALLEN - Last Filed: 07/01/17 23:16> <LUIS QUICK - Last Filed: 07/02/17 03:48> - Vital signs Vitals: Temp Pulse Resp BP Pulse Ox 98.5 F 49 L 16 133/74 H 96 07/01/17 18:24 07/01/17 18:24 07/01/17 18:24 07/01/17 18:24 07/01/17 18:24 - Notes Notes: GENERAL: Alert, interacts well. No acute distress. HEAD: Normocephalic, atraumatic. EYES: Pupils equal, round, and reactive to light. Extraocular movements intact. ENT: Oral mucosa moist, tongue midline. NECK: Full range of motion. Supple. Trachea midline. LUNGS: Clear to auscultation bilaterally, no wheezes, rales, or rhonchi. No respiratory distress. HEART: Regular rate and rhythm. No murmurs, gallops, or rubs. ABDOMEN: Soft, non-tender. Non-distended. Bowel sounds present in all 4 quadrants. EXTREMITIES: Moves all 4 extremities spontaneously. 1+ pitting edema. NEUROLOGICAL: Alert and oriented x3. Normal speech. PSYCH: Normal affect, normal mood. SKIN: Warm, dry, normal turgor. No rashes or lesions noted. (YOLY ALLEN) Course - Laboratory Result Diagrams: 07/01/17 19:30 07/01/17 19:30 <YOLY ALLEN - Last Filed: 07/01/17 23:16> - Laboratory Result Diagrams: 07/01/17 19:30 07/01/17 19:30 <LUIS QUICK - Last Filed: 07/02/17 03:48> - Re-evaluation Re-evalutation: 07/01/17 22:12 Patient presents with leg swelling. Her Lasix has recently been adjusted due to electrolyte imbalance per the family members. Her labs today are within normal limits are trending within her baseline. Patient has not had recent fevers or illnesses. EKG shows no concerning findings from previous on file and her chest x-ray is clear with no acute abnormalities. Discussed with family members need to use compression stockings that they have at home and elevation of the legs she is lying down. Return precautions provided and she is to follow-up with her primary care doctor next 2-3 days if symptoms are not improving with mechanical therapy. (LUIS QUICK) - Vital Signs Vital signs: Temp Pulse Resp BP Pulse Ox 97.8 F 59 L 14 145/58 H 98 07/01/17 23:43 07/01/17 23:43 07/01/17 23:43 07/01/17 23:43 07/01/17 23:43 - Laboratory Laboratory results interpreted by me: 07/01/17 07/01/17 19:30 19:30 Hct 34.9 L RDW 14.4 H Carbon Dioxide 31 H BUN 29 H Est GFR (Non-Af Amer) 50 L Discharge <YOLY ALLEN - Last Filed: 07/01/17 23:16> <LUIS QUICK - Last Filed: 07/02/17 03:48> - Discharge Clinical Impression: Pitting edema Condition: Stable Disposition: HOME, SELF-CARE Additional Instructions: As per our discussion please use the compression stockings you already have at home to help with the swelling. When laying down make sure to elevate your feet at 20- 30. If you have any new or worsening symptoms please return to the emergency department. Referrals: CHLOE TRUJILLO MD [Primary Care Provider] - Follow up as needed Scribe Attestation: 07/02/17 03:48 I personally performed the services described documentation, reviewed and edited the documentation which was dictated to describe my presence, and it accurately records my words and actions. (LUIS QUICK) Scribe Documentation - Scribe Written by Scribe:: Otto De La Torre, 07/01/2017 22:02 acting as scribe for :: Marcos <YOLY ALLEN - Last Filed: 07/01/17 23:16>
--- NOTE | 2017-07-01 22:24 | RADIOLOGY REPORT (SQ) ---
EXAM DESCRIPTION: CHEST PA/LAT COMPLETED DATE/TIME: 07/01/2017 9:46 pm REASON FOR STUDY: leg swelling, concern for CHF COMPARISON: 05/31/2017 EXAM PARAMETERS: NUMBER OF VIEWS: two views TECHNIQUE: Digital Frontal and Lateral radiographic views of the chest acquired. RADIATION DOSE: NA LIMITATIONS: none FINDINGS: LUNGS AND PLEURA: No acute opacities, masses or pneumothorax. No pleural effusion. MEDIASTINUM AND HILAR STRUCTURES: Stable. HEART AND VASCULAR STRUCTURES: Heart normal size. No evidence for failure. BONES: No acute findings. HARDWARE: None in the chest. OTHER: No other significant finding. IMPRESSION: No acute findings. TECHNICAL DOCUMENTATION: JOB ID: [id number] [id number] 2010 [employer]- All Rights Reserved
[2017-07-01] MEDS ORDERED: HYDROXYZINE PAMOATE 25 MG CAPSULE PO ONE (22:46)
[2017-07-01 23:45] VITALS: BP 145/58
--- NOTE | 2017-07-02 08:03 | EKG REPORT ---
SEVERITY:- ABNORMAL ECG - SINUS RHYTHM RIGHT BUNDLE BRANCH BLOCK : Confirmed by: Camron Browning MD 02-Jul-2017 08:03:05
== END 2017-07-01 23:55 | disposition home or self-care (01) ==
LOC: ER 18:12
DX: R60.0 Localized edema (principal); I10 Essential (primary) hypertension; E11.9 Type 2 diabetes mellitus without complications; J45.909 Unspecified asthma, uncomplicated; Z79.899 Other long term (current) drug therapy; Z88.5 Allergy status to narcotic agent; Z88.1 Allergy status to other antibiotic agents; Z88.2 Allergy status to sulfonamides; Z87.891 Personal history of nicotine dependence
CPT/HCPCS: 93005; 99284; 36415; 85025; 80048; 84484; 83880; 71046; 93010; A9270